=== PATIENT | female | born 1985 | race African-American/Black ===

== ENCOUNTER 2023-09-18 09:26 | Emergency (ER) | payer BC ==
[2023-09-18 09:48] LABS: BASOPHILS ABSOLUTE AUTO 0.01 K/uL (0.00-0.20); BASOPHILS PERCENT AUTO 0.2 % (0.0-1.0); EOSINOPHILS ABSOLUTE AUTO 0.19 K/uL (0.00-0.45); HEMATOCRIT 44.7 % (37.0-47.0); HEMOGLOBIN 14.5 g/dL (12.0-16.0); IMMATURE GRAN ABSOLUTE AUTO 0.02 K/uL (0.00-0.05); IMMATURE GRAN PERCENT AUTO 0.3 % (0.0-0.4); LYMPHOCYTES ABSOLUTE AUTO 1.93 K/uL (1.00-4.80); LYMPHOCYTES PERCENT AUTO 30.2 % (24.0-44.0); MEAN CORPUSCULAR HEMOGLOBIN 25.7 pg (28.0-32.0); MEAN CORPUSCULAR HGB CONC 32.4 g/dL (32.0-36.0); MEAN CORPUSCULAR VOLUME 79.3 fL (83.0-99.0); MEAN PLATELET VOLUME 9.5 fL (9.4-12.3); MONOCYTES ABSOLUTE AUTO 0.46 K/uL (0.00-0.80); MONOCYTES PERCENT AUTO 7.2 % (0.0-8.0); NEUTROPHILS ABSOLUTE AUTO 3.78 K/uL (1.80-7.70); NEUTROPHILS PERCENT AUTO 59.1 % (41.0-71.0); PLATELET COUNT,PLT 307 K/uL (150-400); RED BLOOD CELL COUNT 5.64 M/uL (4.10-5.30); WHITE BLOOD CELL COUNT,WBC 6.39 K/uL (3.9-11.3)
[2023-09-18] MEDS ORDERED: Iopamidol 755 MG/ML 500 ML Multipack Bottle IVPUSH STA (09:50)
[2023-09-18 10:04] LABS: INR 0.98 (0.86-1.11); PTT,PARTIAL THROMBOPLSTIN TIME 27.8 SEC (23.9-30.7)
[2023-09-18] MEDS ORDERED: Aspirin 325 MG Tab PO ONE (10:08)
[2023-09-18] MEDS ORDERED: Clopidogrel 75 MG Tab PO ONE (10:08)
[2023-09-18 10:20] LABS: A/G RATIO 0.8 (0.9-1.6); ALANINE AMINOTRANSFERASE,ALT 28 IU/L (14-63); ALBUMIN 3.4 g/dL (3.4-5.0); ALKALINE PHOSPHATASE 86 U/L (46-116); ASPARTATE AMNIOTRANSFERASE,AST 23 IU/L (15-37); BILIRUBIN TOTAL 0.2 mg/dL (0.2-1.0); BLOOD UREA NITROGEN,BUN 6 mg/dL (7.0-18.0); CALCIUM 9.5 mg/dL (8.5-10.1); CARBON DIOXIDE,CO2 23.3 mmol/L (21.0-32.0); CHLORIDE,CL 104 mmol/L (98-107); CREATININE 0.9 mg/dL (0.6-1.0); GLUCOSE RANDOM 117 mg/dL (74-106); MAGNESIUM 1.9 mg/dL (1.8-2.4); POTASSIUM,K 3.9 mmol/L (3.5-5.1); PROTEIN TOTAL,TP 7.7 g/dL (6.4-8.2); SODIUM,NA 139 mmol/L (136-145)
[2023-09-18 10:25] LABS: ESTIMATED GFR 85 mL/min (>60)
== END 2023-09-18 12:14 ==
LOC: MW.ED 09:26
DX: I67.9 Cerebrovascular disease, unspecified (principal)
CPT/HCPCS: 36415; 70450; 70496; 70498; 80053; 83735; 84484; 84703; 85025; 85610; 85730; 99285; A9270; Q9967; 93010; 99291

== ENCOUNTER 2024-09-29 16:41 | Emergency (ER) | payer BC ==
[2024-09-29 17:10] LABS: BASOPHILS ABSOLUTE AUTO 0.01 K/uL (0.00-0.20); BASOPHILS PERCENT AUTO 0.2 % (0.0-1.0); EOSINOPHILS ABSOLUTE AUTO 0.06 K/uL (0.00-0.45); EOSINOPHILS PERCENT AUTO 0.9 % (0.0-6.0); HEMATOCRIT 38.1 % (37.0-47.0); HEMOGLOBIN 12.5 g/dL (12.0-16.0); IMMATURE GRAN ABSOLUTE AUTO 0.02 K/uL (0.00-0.05); IMMATURE GRAN PERCENT AUTO 0.3 % (0.0-0.4); MEAN CORPUSCULAR HEMOGLOBIN 25.5 pg (28.0-32.0); MEAN CORPUSCULAR HGB CONC 32.8 g/dL (32.0-36.0); MEAN CORPUSCULAR VOLUME 77.6 fL (83.0-99.0); MEAN PLATELET VOLUME 9.2 fL (9.4-12.3); MONOCYTES ABSOLUTE AUTO 0.74 K/uL (0.00-0.80); MONOCYTES PERCENT AUTO 11.3 % (0.0-8.0); NEUTROPHILS PERCENT AUTO 61.3 % (41.0-71.0); PLATELET COUNT,PLT 265 K/uL (150-400); RED BLOOD CELL COUNT 4.91 M/uL (4.10-5.30); WHITE BLOOD CELL COUNT,WBC 6.53 K/uL (3.9-11.3)
[2024-09-29 18:00] LABS: A/G RATIO 0.7 (0.9-1.6); ALANINE AMINOTRANSFERASE,ALT 17 IU/L (14-63); ALBUMIN 3.2 g/dL (3.4-5.0); ALKALINE PHOSPHATASE 82 U/L (46-116); ASPARTATE AMNIOTRANSFERASE,AST 11 IU/L (15-37); BILIRUBIN TOTAL 0.5 mg/dL (0.2-1.0); BLOOD UREA NITROGEN,BUN 4 mg/dL (7.0-18.0); CALCIUM 9.1 mg/dL (8.5-10.1); CARBON DIOXIDE,CO2 20.7 mmol/L (21.0-32.0); CHLORIDE,CL 102 mmol/L (98-107); CREATININE 0.6 mg/dL (0.6-1.0); EST CRCL DRUG DOSING (CG) 110.86 mL/min; GLUCOSE RANDOM 87 mg/dL (74-106); POTASSIUM,K 3.6 mmol/L (3.5-5.1); PROTEIN TOTAL,TP 7.5 g/dL (6.4-8.2); SODIUM,NA 138 mmol/L (136-145)
[2024-09-29 18:04] LABS: ESTIMATED GFR 118 mL/min (>60)
[2024-09-29] MEDS: Sodium Chloride 0.9% 1,000 ML IV ONE (18:13)
[2024-09-29] MEDS: Ondansetron 4 MG/2 ML SDV IVPUSH ONE (18:13)
[2024-09-29 20:02] LABS: APPEARANCE,URINE CLEAR; COLOR,URINE YELLOW
[2024-09-29 20:04] LABS: BILIRUBIN,URINE NEGATIVE (NEGATIVE); GLUCOSE,URINE NEGATIVE (NEGATIVE); KETONES,URINE NEGATIVE (NEGATIVE); PH,URINE 6.5 (5.0-8.0); PROTEIN,URINE NEGATIVE (NEGATIVE)
[2024-09-29 20:05] LABS: BACTERIA,URINE RARE (NEGATIVE); EPITHELIAL CELLS,URINE FEW (NONE-FEW); LEUKOCYTE ESTERASE,URINE SMALL (NEGATIVE); NITRITE,URINE NEGATIVE (NEGATIVE); OCCULT BLOOD,URINE NEGATIVE (NEGATIVE); RBC,URINE 0-1 (0-2/HPF); UROBILINOGEN,URINE 0.2 EU/dL (<2.0)
== END 2024-09-29 20:59 | disposition home or self-care (01) ==
LOC: MW.ED 16:41
DX: O23.40 Unspecified infection of urinary tract in pregnancy, unspecified trimester (principal); O21.9 Vomiting of pregnancy, unspecified; Z3A.00 Weeks of gestation of pregnancy not specified; Z79.82 Long term (current) use of aspirin; Z79.899 Other long term (current) drug therapy; Z75.8 Other problems related to medical facilities and other health care
CPT/HCPCS: 36415; 71045; 80053; 81001; 84484; 84702; 84703; 85025; 87086; 87428; 93005; 96361; 96374; 99285; J2405; J7030

== ENCOUNTER 2024-10-10 13:30 | Emergency (ER) | payer BC ==
[2024-10-10] MEDS: Sodium Chloride 0.9% 1,000 ML IV ONE (15:00)
[2024-10-10] MEDS: Ondansetron 4 MG/2 ML SDV IVPUSH ONE (15:05)
[2024-10-10 15:15] LABS: BASOPHILS ABSOLUTE AUTO 0.01 K/uL (0.00-0.20); BASOPHILS PERCENT AUTO 0.1 % (0.0-1.0); EOSINOPHILS ABSOLUTE AUTO 0.11 K/uL (0.00-0.45); EOSINOPHILS PERCENT AUTO 1.6 % (0.0-6.0); HEMATOCRIT 32.6 % (37.0-47.0); HEMOGLOBIN 11.6 g/dL (12.0-16.0); IMMATURE GRAN ABSOLUTE AUTO 0.02 K/uL (0.00-0.05); IMMATURE GRAN PERCENT AUTO 0.3 % (0.0-0.4); LYMPHOCYTES ABSOLUTE AUTO 1.13 K/uL (1.00-4.80); LYMPHOCYTES PERCENT AUTO 16.1 % (24.0-44.0); MEAN CORPUSCULAR HEMOGLOBIN 26.4 pg (28.0-32.0); MEAN CORPUSCULAR HGB CONC 35.6 g/dL (32.0-36.0); MEAN CORPUSCULAR VOLUME 74.3 fL (83.0-99.0); MEAN PLATELET VOLUME 9.6 fL (9.4-12.3); MONOCYTES ABSOLUTE AUTO 0.93 K/uL (0.00-0.80); MONOCYTES PERCENT AUTO 13.3 % (0.0-8.0); NEUTROPHILS ABSOLUTE AUTO 4.81 K/uL (1.80-7.70); NEUTROPHILS PERCENT AUTO 68.6 % (41.0-71.0); PLATELET COUNT,PLT 259 K/uL (150-400); RED BLOOD CELL COUNT 4.39 M/uL (4.10-5.30); WHITE BLOOD CELL COUNT,WBC 7.01 K/uL (3.9-11.3)
[2024-10-10 15:37] LABS: BILIRUBIN,URINE NEGATIVE (NEGATIVE); COLOR,URINE YELLOW; GLUCOSE,URINE NEGATIVE (NEGATIVE); KETONES,URINE NEGATIVE (NEGATIVE); LEUKOCYTE ESTERASE,URINE LARGE (NEGATIVE); NITRITE,URINE NEGATIVE (NEGATIVE); OCCULT BLOOD,URINE NEGATIVE (NEGATIVE); PROTEIN,URINE NEGATIVE (NEGATIVE); UROBILINOGEN,URINE 0.2 EU/dL (<2.0)
[2024-10-10 15:38] LABS: APPEARANCE,URINE SLT CLOUDY
[2024-10-10] MEDS: Morphine 4 MG/ML Syringe IVPUSH ONE (15:39)
[2024-10-10 15:47] LABS: BACTERIA,URINE FEW (NEGATIVE); EPITHELIAL CELLS,URINE RARE (NONE-FEW); RBC,URINE 0-1 (0-2/HPF)
[2024-10-10 16:11] LABS: A/G RATIO 0.8 (0.9-1.6); ALBUMIN 3.5 g/dL (3.4-5.0); BILIRUBIN TOTAL 0.6 mg/dL (0.2-1.0); CALCIUM 9.6 mg/dL (8.5-10.1); CARBON DIOXIDE,CO2 19.7 mmol/L (21.0-32.0); CREATININE 1.2 mg/dL (0.6-1.0); EST CRCL DRUG DOSING (CG) 57.76 mL/min; POTASSIUM,K 4.5 mmol/L (3.5-5.1); PROTEIN TOTAL,TP 7.8 g/dL (6.4-8.2)
== END 2024-10-10 17:14 | disposition home or self-care (01) ==
LOC: MW.ED 13:30
DX: O99.891 Other specified diseases and conditions complicating pregnancy (principal); R19.00 Intra-abdominal and pelvic swelling, mass and lump, unspecified site; E78.00 Pure hypercholesterolemia, unspecified; Z86.73 Personal history of transient ischemic attack (TIA), and cerebral infarction without residual deficits; Z75.8 Other problems related to medical facilities and other health care; Z79.82 Long term (current) use of aspirin; Z79.899 Other long term (current) drug therapy; Z3A.08 8 weeks gestation of pregnancy
CPT/HCPCS: 36415; 76817; 80053; 81001; 83690; 84702; 85025; 86900; 86901; 87086; 87088; 87186; 96361; 96374; 96375; 99284; J2270; J2405; J7030; 99283

== ENCOUNTER 2024-10-14 15:48 | Inpatient (IN) | payer BC ==
[2024-10-14] MEDS ORDERED: Sodium Chloride 0.9% 20 ML SDV IV PRN (16:54)
[2024-10-14] MEDS ORDERED: Water For Irrigation,Sterile 1,000 ML Container IRR PRN (16:54)
[2024-10-14] MEDS ORDERED: Sodium Chloride 0.9% 10 ML Syringe FLUSH PRN (16:54)
[2024-10-14] MEDS ORDERED: Sodium Chloride 0.9% 2.5 ML Syringe FLUSH PRN (16:54)
[2024-10-14] MEDS: Acetaminophen 325 MG Tab PO PRN (17:46)
[2024-10-14] MEDS: Lactated Ringers 1,000 ML IV SCH (17:53)
[2024-10-14] MEDS: Enoxaparin 40 MG/0.4 ML Syringe SUBCUT SCH (17:58)
[2024-10-14 19:06] LABS: HEMOGLOBIN 10.5 g/dL (12.0-16.0); MEAN CORPUSCULAR HEMOGLOBIN 26.1 pg (28.0-32.0); MEAN CORPUSCULAR VOLUME 74.4 fL (83.0-99.0); MEAN PLATELET VOLUME 9.1 fL (9.4-12.3); PLATELET COUNT,PLT 258 K/uL (150-400); RED BLOOD CELL COUNT 4.03 M/uL (4.10-5.30)
[2024-10-14] MEDS: oxyCODONE 5 MG Tab PO PRN (19:30)
[2024-10-14 19:36] LABS: A/G RATIO 0.7 (0.9-1.6); ALANINE AMINOTRANSFERASE,ALT 45 IU/L (14-63); ALBUMIN 3.1 g/dL (3.4-5.0); ALKALINE PHOSPHATASE 95 U/L (46-116); ASPARTATE AMNIOTRANSFERASE,AST 39 IU/L (15-37); BILIRUBIN TOTAL 0.6 mg/dL (0.2-1.0); BLOOD UREA NITROGEN,BUN 23 mg/dL (7.0-18.0); CALCIUM 9.4 mg/dL (8.5-10.1); CARBON DIOXIDE,CO2 20.8 mmol/L (21.0-32.0); CHLORIDE,CL 83 mmol/L (98-107); CREATININE 1.9 mg/dL (0.6-1.0); EST CRCL DRUG DOSING (CG) 36.48 mL/min; GLUCOSE RANDOM 84 mg/dL (74-106); MAGNESIUM 1.9 mg/dL (1.8-2.4); PHOSPHORUS 5.3 mg/dL (2.6-4.7); POTASSIUM,K 5.5 mmol/L (3.5-5.1); PROTEIN TOTAL,TP 7.6 g/dL (6.4-8.2)
[2024-10-14 19:44] LABS: ESTIMATED GFR 34 mL/min (>60)
[2024-10-14 19:46] LABS: SODIUM,NA 116 mmol/L (136-145)
[2024-10-14 21:03] LABS: APPEARANCE,URINE CLEAR; BILIRUBIN,URINE NEGATIVE (NEGATIVE); COLOR,URINE YELLOW; GLUCOSE,URINE NEGATIVE (NEGATIVE); KETONES,URINE TRACE mg/dL (NEGATIVE); LEUKOCYTE ESTERASE,URINE LARGE (NEGATIVE); NITRITE,URINE NEGATIVE (NEGATIVE); OCCULT BLOOD,URINE TRACE-INTACT (NEGATIVE); PH,URINE 5.5 (5.0-8.0); PROTEIN,URINE NEGATIVE (NEGATIVE); UROBILINOGEN,URINE 0.2 EU/dL (<2.0)
[2024-10-14 21:13] LABS: AMPHETAMINES SCREEN, URINE NEGATIVE (CUTOFF=500); BARBITURATE SCREEN,URINE NEGATIVE (CUTOFF=200); BENZODIAZEPINES SCREEN,URINE NEGATIVE (CUTOFF=150); BUPRENORPHINE SCREEN,URINE NEGATIVE (CUTOFF=10); METHADONE SCREEN, URINE NEGATIVE (CUTOFF=200); METHAMPHETAMINES SCREEN, URINE NEGATIVE (CUTOFF=500); OXYCODONE SCREEN,URINE NEGATIVE (CUT0FF=100); PCP SCREEN,URINE NEGATIVE (CUTOFF=25); THC SCREEN,URINE 20 NG/ML NEGATIVE (CUTOFF=50)
[2024-10-14] MEDS: Docusate Sodium 100 MG Cap PO PRN (21:24)
[2024-10-14] MEDS: Aspirin 81 MG Tab.Chew PO SCH (21:24)
[2024-10-14 21:40] LABS: HIV12 AG/AB 4TH GEN W/REFLEX < 0.1 INDEX (<1.0)
[2024-10-15 00:11] LABS: CALCIUM 9.4 mg/dL (8.5-10.1); CARBON DIOXIDE,CO2 19.1 mmol/L (21.0-32.0); CREATININE 1.9 mg/dL (0.6-1.0); EST CRCL DRUG DOSING (CG) 36.48 mL/min; POTASSIUM,K 5.2 mmol/L (3.5-5.1)
[2024-10-15] MEDS: Sodium Chloride 0.9% 1,000 ML IV SCH (00:35)
[2024-10-15] MEDS ORDERED: Naloxone 0.4 MG/ML SDV IVPUSH PRN (00:54)
[2024-10-15] MEDS: Morphine 2 MG/ML SYRINGE IVPUSH ONE (06:10)
[2024-10-15 06:42] LABS: CALCIUM 9.1 mg/dL (8.5-10.1); CREATININE 2.1 mg/dL (0.6-1.0); POTASSIUM,K 4.9 mmol/L (3.5-5.1)
[2024-10-15] MEDS: Prenatal Multivitamin with Calcium/Folic Acid/Iron Tab PO SCH (08:54)
[2024-10-15 08:56] LABS: BASOPHILS ABSOLUTE AUTO 0.01 K/uL (0.00-0.20); BASOPHILS PERCENT AUTO 0.1 % (0.0-1.0); EOSINOPHILS ABSOLUTE AUTO 0.03 K/uL (0.00-0.45); EOSINOPHILS PERCENT AUTO 0.4 % (0.0-6.0); HEMATOCRIT 28.6 % (37.0-47.0); IMMATURE GRAN ABSOLUTE AUTO 0.02 K/uL (0.00-0.05); IMMATURE GRAN PERCENT AUTO 0.3 % (0.0-0.4); LYMPHOCYTES ABSOLUTE AUTO 0.72 K/uL (1.00-4.80); LYMPHOCYTES PERCENT AUTO 9.1 % (24.0-44.0); MEAN CORPUSCULAR HEMOGLOBIN 26.1 pg (28.0-32.0); MEAN CORPUSCULAR VOLUME 74.7 fL (83.0-99.0); MONOCYTES ABSOLUTE AUTO 1.02 K/uL (0.00-0.80); MONOCYTES PERCENT AUTO 12.9 % (0.0-8.0); NEUTROPHILS ABSOLUTE AUTO 6.12 K/uL (1.80-7.70); NEUTROPHILS PERCENT AUTO 77.2 % (41.0-71.0); PLATELET COUNT,PLT 234 K/uL (150-400); RED BLOOD CELL COUNT 3.83 M/uL (4.10-5.30); WHITE BLOOD CELL COUNT,WBC 7.92 K/uL (3.9-11.3)
[2024-10-15] MEDS: Sodium Chloride 1 GM Tab PO SCH (09:19)
[2024-10-15 09:26] LABS: ALANINE AMINOTRANSFERASE,ALT 48 IU/L (14-63); ASPARTATE AMNIOTRANSFERASE,AST 38 IU/L (15-37)
[2024-10-15 09:54] LABS: TSH ULTRASENSITIVE < 0.01 uIU/mL (0.36-3.74)
[2024-10-15 10:10] LABS: T4 FREE 3.17 ng/dL (0.76-1.46)
[2024-10-15] MEDS: Ondansetron 4 MG/2 ML SDV IVPUSH PRN (10:19)
[2024-10-15 11:04] LABS: PH,VENOUS 7.37 (7.31-7.41)
[2024-10-15 11:20] LABS: CANCER ANTIGEN 125,CA 125 134.8 U/ML (0.0-35.0)
[2024-10-15 11:24] LABS: CARBON DIOXIDE,CO2 18.2 mmol/L (21.0-32.0); EST CRCL DRUG DOSING (CG) 34.65 mL/min; MAGNESIUM 2.2 mg/dL (1.8-2.4); PHOSPHORUS 5.9 mg/dL (2.6-4.7)
[2024-10-15] MEDS: Acetaminophen 1,000 MG in Premix Bag 1 BAG IV ONE (11:40)
[2024-10-15 11:55] LABS: C. TRACHOMATIS BY PCR NOT DETECTED; N. GONORRHOEAE BY PCR NOT DETECTED
[2024-10-15] MEDS ORDERED: fentaNYL 50 MCG/ML SDV IVPUSH SCH (13:00)
[2024-10-15] MEDS ORDERED: Morphine 2 MG/ML SYRINGE IVPUSH ONE (13:20)
[2024-10-15] MEDS: diphenhydrAMINE 50 MG/ML SDV IVPUSH PRN (16:02)
[2024-10-15] MEDS: Morphine 4 MG/ML Syringe IVPUSH PRN (16:03)
[2024-10-15 18:13] LABS: CALCIUM 9.3 mg/dL (8.5-10.1); CARBON DIOXIDE,CO2 14.8 mmol/L (21.0-32.0); CREATININE 2.1 mg/dL (0.6-1.0); POTASSIUM,K 4.8 mmol/L (3.5-5.1)
[2024-10-15] MEDS: Lactated Ringers 1,000 ML IV SCH (19:23)
[2024-10-15 23:00] LABS: CALCIUM 9.2 mg/dL (8.5-10.1); CARBON DIOXIDE,CO2 18.5 mmol/L (21.0-32.0); CREATININE 1.7 mg/dL (0.6-1.0); EST CRCL DRUG DOSING (CG) 40.77 mL/min; POTASSIUM,K 4.8 mmol/L (3.5-5.1)
[2024-10-16] MEDS: Dextrose 5% in Water 1,000 ML IV SCH ×4 (00:25→17:12)
[2024-10-16 06:17] LABS: GROUP B STREP BY PCR POSITIVE (NEGATIVE)
[2024-10-16 06:24] LABS: EOSINOPHILS ABSOLUTE AUTO 0.04 K/uL (0.00-0.45); EOSINOPHILS PERCENT AUTO 0.8 % (0.0-6.0); HEMATOCRIT 24.4 % (37.0-47.0); HEMOGLOBIN 8.3 g/dL (12.0-16.0); IMMATURE GRAN ABSOLUTE AUTO 0.02 K/uL (0.00-0.05); IMMATURE GRAN PERCENT AUTO 0.4 % (0.0-0.4); LYMPHOCYTES ABSOLUTE AUTO 0.66 K/uL (1.00-4.80); LYMPHOCYTES PERCENT AUTO 13.3 % (24.0-44.0); MEAN CORPUSCULAR HEMOGLOBIN 25.9 pg (28.0-32.0); MEAN CORPUSCULAR VOLUME 76.3 fL (83.0-99.0); MEAN PLATELET VOLUME 10.4 fL (9.4-12.3); MONOCYTES PERCENT AUTO 8.1 % (0.0-8.0); NEUTROPHILS ABSOLUTE AUTO 3.84 K/uL (1.80-7.70); NEUTROPHILS PERCENT AUTO 77.4 % (41.0-71.0); WHITE BLOOD CELL COUNT,WBC 4.96 K/uL (3.9-11.3)
[2024-10-16 06:43] LABS: PLATELET COUNT,PLT 219 K/uL (150-400)
[2024-10-16 06:49] LABS: A/G RATIO 0.6 (0.9-1.6); BILIRUBIN TOTAL 0.4 mg/dL (0.2-1.0); CALCIUM 8.8 mg/dL (8.5-10.1); CARBON DIOXIDE,CO2 20.3 mmol/L (21.0-32.0); CREATININE 1.2 mg/dL (0.6-1.0); EST CRCL DRUG DOSING (CG) 57.76 mL/min; MAGNESIUM 1.6 mg/dL (1.8-2.4); PHOSPHORUS 5.3 mg/dL (2.6-4.7); POTASSIUM,K 3.8 mmol/L (3.5-5.1); PROTEIN TOTAL,TP 5.3 g/dL (6.4-8.2)
[2024-10-16] MEDS: Magnesium Sulf/Wat 2 GM/50 mL 2 GM in Premix Bag 1 BAG IV ONE (09:48)
[2024-10-16] MEDS: cefTRIAXone 1 GM in Sodium Chloride 0.9% 50 ML IV SCH (12:06)
[2024-10-16 14:55] LABS: BASOPHILS ABSOLUTE AUTO 0.01 K/uL (0.00-0.20); BASOPHILS PERCENT AUTO 0.2 % (0.0-1.0); EOSINOPHILS ABSOLUTE AUTO 0.05 K/uL (0.00-0.45); EOSINOPHILS PERCENT AUTO 0.8 % (0.0-6.0); HEMATOCRIT 25.1 % (37.0-47.0); HEMOGLOBIN 8.7 g/dL (12.0-16.0); IMMATURE GRAN ABSOLUTE AUTO 0.02 K/uL (0.00-0.05); IMMATURE GRAN PERCENT AUTO 0.3 % (0.0-0.4); LYMPHOCYTES ABSOLUTE AUTO 0.73 K/uL (1.00-4.80); MEAN CORPUSCULAR HEMOGLOBIN 26.3 pg (28.0-32.0); MEAN CORPUSCULAR HGB CONC 34.7 g/dL (32.0-36.0); MEAN CORPUSCULAR VOLUME 75.8 fL (83.0-99.0); MEAN PLATELET VOLUME 9.1 fL (9.4-12.3); MONOCYTES ABSOLUTE AUTO 0.73 K/uL (0.00-0.80); NEUTROPHILS ABSOLUTE AUTO 4.56 K/uL (1.80-7.70); NEUTROPHILS PERCENT AUTO 74.7 % (41.0-71.0); PLATELET COUNT,PLT 223 K/uL (150-400); RED BLOOD CELL COUNT 3.31 M/uL (4.10-5.30)
[2024-10-16] MEDS ORDERED: Morphine 2 MG/ML SYRINGE IVPUSH STA (17:27)
[2024-10-17 17:06] LABS: HEP B SURFACE AG Negative (Negative)
== END 2024-10-16 17:45 | DRG 566 ==
LOC: MW.OBCHECK 15:48 → MW.OB 15:54 → MW.ICU 21:35 → MW.OB 21:40 → OBSVTOIN 21:40
PROVIDERS: ADMIT Obstetrics & Gynecology Obstetrics; ATTEND Obstetrics & Gynecology
DX: O99.281 Endocrine, nutritional and metabolic diseases complicating pregnancy, first trimester (principal); O26.831 Pregnancy related renal disease, first trimester; N17.9 Acute kidney failure, unspecified; E87.1 Hypo-osmolality and hyponatremia; R19.00 Intra-abdominal and pelvic swelling, mass and lump, unspecified site; O99.611 Diseases of the digestive system complicating pregnancy, first trimester; O34.81 Maternal care for other abnormalities of pelvic organs, first trimester; E86.1 Hypovolemia; I69.354 Hemiplegia and hemiparesis following cerebral infarction affecting left non-dominant side; O21.0 Mild hyperemesis gravidarum; O99.321 Drug use complicating pregnancy, first trimester; F11.90 Opioid use, unspecified, uncomplicated; O34.11 Maternal care for benign tumor of corpus uteri, first trimester; N32.89 Other specified disorders of bladder
CPT/HCPCS: 36415; 51701; 51702; 51798; 72195; 72195-26; 74181; 74181-26; 76770; 76770-26; 76802; 76802-26; 76805; 76805-26; 80048; 80053; 80305; 81003; 82803; 83735; 84100; 84295; 84439; 84443; 84450; 84460; 84702; 85025; 85027; 86304; 86592; 86706; 86762; 86850; 86900; 86901; 86920; 87086; 87340; 87389; 87491; 87591; 87653; 93306; 93971; 93971-26; A9270-GY; J0131; J0696; J1200; J1650; J2270; J2405; J2597; J3475; J3490; J7030; J7060; J7120